=== PATIENT | female | born 1990 | race Caucasian/White ===

== ENCOUNTER → 2018-05-16 | Outpatient (CLI) | payer OTHER ==
--- NOTE | 2018-05-16 16:56 | RADIOLOGY REPORT (SQ) ---
EXAM DESCRIPTION: HYSTEROSALPINGOGRAM; HYSTERO CATH/INJECTION COMPLETED DATE/TIME: 05/16/2018 3:20 pm; 05/16/2018 3:21 pm REASON FOR STUDY: INFERTILITY COMPARISON: None. PROCEDURE: PRE-PROCEDURE: Procedure was explained to the patient. She was told to expect cramping du ring the procedure, and possible spotting post procedure. PROCEDURE: Under direct visual inspection, the cervix was cannulated with the hysterosalpingogram cat heter and contrast injected. TECHNIQUE: Temporal fluoroscopic images acquired during the procedure stored to PACS. FLUOROSCOPY TIME: Less than 5 seconds 7 digital radiographic images saved to PACS. LIMITATIONS: None. FINDINGS: UTERUS: No identified anomalies. No synechia. RIGHT ADNEXA: Normal size fallopian tube. Free spill of contrast into the peritoneal cavity. LEFT ADNEXA: Normal size fallopian tube. Free spill of contrast into the peritoneal cavity. POST PROCEDURE: The patient tolerated the procedure with no adverse effects. IMPRESSION: NORMAL HYSTEROSALPINGOGRAM. COMMENT: Quality ID 145: Final reports for procedures using fluoroscopy that document radiation exp osure indices, or exposure time and number of fluorographic images (if radiation exposure indices are not available) TECHNICAL DOCUMENTATION: JOB ID: [id number] [employer]- All Rights Reserved Reading location - IP/workstation name: [email or web address]
--- NOTE | 2018-05-16 16:56 | RADIOLOGY REPORT (SQ) ---
EXAM DESCRIPTION: HYSTEROSALPINGOGRAM; HYSTERO CATH/INJECTION COMPLETED DATE/TIME: 05/16/2018 3:20 pm; 05/16/2018 3:21 pm REASON FOR STUDY: INFERTILITY COMPARISON: None. PROCEDURE: PRE-PROCEDURE: Procedure was explained to the patient. She was told to expect cramping du ring the procedure, and possible spotting post procedure. PROCEDURE: Under direct visual inspection, the cervix was cannulated with the hysterosalpingogram cat heter and contrast injected. TECHNIQUE: Temporal fluoroscopic images acquired during the procedure stored to PACS. FLUOROSCOPY TIME: Less than 5 seconds 7 digital radiographic images saved to PACS. LIMITATIONS: None. FINDINGS: UTERUS: No identified anomalies. No synechia. RIGHT ADNEXA: Normal size fallopian tube. Free spill of contrast into the peritoneal cavity. LEFT ADNEXA: Normal size fallopian tube. Free spill of contrast into the peritoneal cavity. POST PROCEDURE: The patient tolerated the procedure with no adverse effects. IMPRESSION: NORMAL HYSTEROSALPINGOGRAM. COMMENT: Quality ID 145: Final reports for procedures using fluoroscopy that document radiation exp osure indices, or exposure time and number of fluorographic images (if radiation exposure indices are not available) TECHNICAL DOCUMENTATION: JOB ID: [id number] [employer]- All Rights Reserved Reading location - IP/workstation name: [email or web address]
== END ==
LOC: RAD 14:31
PROVIDERS: ATTEND Specialist
DX: N97.9 Female infertility, unspecified (principal)
CPT/HCPCS: 58340; 74740

== ENCOUNTER → 2019-02-20 | Outpatient (CLI) | payer OTHER ==
[2019-02-20 18:23] LABS: ALBUMIN 3.5 g/dL (3.5-5.0); ALKALINE PHOSPHATASE 139 U/L (38-126); ASPARTATE AMINO TRANSFERASE 21 U/L (14-36); BILIRUBIN,DIRECT 0.2 mg/dL (0.0-0.4); BILIRUBIN,TOTAL 0.4 mg/dL (0.2-1.3); TOTAL PROTEIN 6.1 g/dL (6.3-8.2)
== END ==
LOC: OD 16:24
PROVIDERS: ATTEND Advanced Practice Midwife
DX: O26.86 Pruritic urticarial papules and plaques of pregnancy (PUPPP) (principal); L29.9 Pruritus, unspecified; Z3A.00 Weeks of gestation of pregnancy not specified
CPT/HCPCS: 36415; 80076; 82239

== ENCOUNTER 2019-03-20 22:46 | Inpatient (IN) | payer OTHER ==
[2019-03-20] MEDS ORDERED: OXYTOCIN 10 UNIT/ML VIAL ONE (22:58)
[2019-03-20] MEDS ORDERED: MISOPROSTOL 0.2 MG TABLET ONE (22:58)
[2019-03-20] MEDS ORDERED: PENICILLIN G-K 5 MILLION UNIT VIAL ONE (22:59)
[2019-03-20] MEDS ORDERED: LIDOCAINE 1% INJ-PF (10 MG/ML) 30 ML SDV ONE (22:59)
[2019-03-20] MEDS ORDERED: OXYTOCIN/NORMAL SALINE 20 UNIT/1,000 ML RTUINJ ONE (22:59)
[2019-03-20] MEDS ORDERED: RINGERS SOLUTION,LACTATED 1,000 ML IV PRN (23:17)
[2019-03-20] MEDS ORDERED: BUPIVACAINE HCL 0.25 % INJ/PF (2.5 MG/1 ML) 30 ML VIAL ONE (23:30)
[2019-03-20] MEDS ORDERED: FENTANYL/BUPIVACAINE/NS/PF 300 MCG/150 ML RTUINJ EPI ONE (23:30)
[2019-03-20] MEDS ORDERED: EPHEDRINE SULFATE INJ 50 MG/1 ML AMPULE ONE (23:30)
[2019-03-20 23:56] LABS: ABSOLUTE EOSINOPHILS # (AUTO) 0.1 10^3/uL (0.0-0.6); ABSOLUTE MONOCYTES (AUTO) 0.7 10^3/uL (0.1-1.4); ABSOLUTE NEUT (AUTO) 8.3 10^3/uL (1.7-8.2); BASOPHILS % (AUTO) 0.3 % (0-2); EOSINOPHILS % (AUTO) 1.2 % (0-6); HEMATOCRIT 35.4 % (36.0-47.0); HEMOGLOBIN 12.1 g/dL (12.0-15.5); LYMPHOCYTES % (AUTO) 18.2 % (13-45); MEAN CORPUSCULAR HEMOGLOBIN 30.8 pg (27.0-33.4); MEAN CORPUSCULAR HGB CONC 34.2 g/dL (32.0-36.0); MEAN CORPUSCULAR VOLUME 90 fl (80-97); MONOCYTES % (AUTO) 6.6 % (3-13); PLATELET COUNT 205 10^3/uL (150-450); RED BLOOD COUNT 3.93 10^6/uL (3.72-5.28); RED CELL DISTRIBUTION WIDTH 13.6 % (11.5-14.0); SEGMENTED NEUTROPHILS % (AUTO) 73.7 % (42-78); TOTAL CELLS COUNTED % (AUTO) 100 %; WHITE BLOOD COUNT 11.2 10^3/uL (4.0-10.5)
[2019-03-20] MEDS ORDERED: PENICILLIN G POTASSIUM 5,000,000 UNIT in DEXTROSE 5%-WATER 100 ML IV ONE (23:59)
[2019-03-21] LABS: APPEARANCE,URINE TURBID; BILIRUBIN,URINE NEGATIVE (NEGATIVE); COLOR,URINE AMBER; GLUCOSE, URINE NEGATIVE (NEGATIVE); KETONES,URINE NEGATIVE (NEGATIVE); LEUKOCYTE ESTERASE,URINE NEGATIVE (NEGATIVE); NITRITE,URINE NEGATIVE (NEGATIVE); PROTEIN,URINE 100 mg/dL (NEGATIVE); URINE SPECIFIC GRAVITY 1.004; UROBILINOGEN,URINE NEGATIVE mg/dL (<2.0)
[2019-03-21] MEDS ORDERED: PENICILLIN G-K 5 MILLION UNIT VIAL ONE ×3 (03:01→07:27)
[2019-03-21] MEDS: PENICILLIN G POTASSIUM 2,500,000 UNIT in DEXTROSE 5%-WATER 50 ML IV SCH ×2 (03:22→10:24)
--- NOTE | 2019-03-21 05:09 | Admission Physical ---
Datetime Report Generated by CPN: 03/21/2019 05:09 CURRENT ADMISSION Chief Complaint: Uterine Contractions; Suspected Ruptured Membranes Indication for Induction: Not Applicable Admit Impression : Term, Intrauterine ; No Active Labor Admit Plan: Admit to Unit; Initiate Labor Protocol; Initiate Labor Augmentation Protocol ALLERGIES Medication Allergies: No Latex: No Latex Allergies OBSTETRICAL HISTORY EDC: 03/15/2019 00:00 : 1 Para: 0 Term: 0 : 0 SAB: 0 IAB: 0 Ectopic: 0 Livin Cesareans: 0 VBACs: 0 Multiple Births: 0 Gestational Diabetes: No Rh Sensitization: No Incompetent Cervix: No TOSHA: No Infertility: No ART Treatment: No Uterine Anomaly: No IUGR: No Hx Previous C/S: No Macrosomia: No Hx Loss/Stillborn: No PIH: No Hx : No Placenta Previa/Abruption: No Depression/PP Depression: No PTL/PROM: No Post Hemorrhage: No Obstetrical History Comments: G1- current SEE RECORDS Alcohol: No Marijuana : No Cocaine: No Other Illicit Drugs: No Cigarettes: Never Smoker. [id number] MEDICAL HISTORY Diabetes: No Blood Transfusion: No Pulmonary Disease (Asthma, TB): Yes Breast Disease: No Hypertension: No Vendor Management Associate Surgery: No Heart Disease: No Hosp/Surgery: No Autoimmune Disorder: No Anesthetic Complications: No Kidney Disease: No Abnormal Pap Smear: No Neuro/Epilepsy: No Psychiatric Disorders: No Other Medical Diseases: Yes Hepatitis/Liver Disease: No Significant Family History: No Varicosities/Phlebitis: No Trauma/Violence : No Thyroid Dysfunction: No Medical History Comments: SVT as child, mild asthma, tonsillectomy, tubes in ears, adenoidectomy INFECTIOUS HISTORY Gonorrhea: No Genital Herpes: No Chlamydia: No Tuberculosis: No Syphilis: No Hepatitis: No HIV/AIDS Exposure: No Rash or Viral Illness: No HPV: No PHYSICAL EXAM General: Normal HEENT: Normal Neurologic: Normal Thyroid: Normal Heart: Normal Lungs: Normal Breast: Normal Back: Normal Abdomen: Normal Genitourinary Exam: Normal Extremities: Normal DTRs: Normal Pelvic Type: Adequate Vital Signs: Reviewed VAGINAL EXAM Dilatation: 4 Effacement: 90 Station: -3 MEMBRANES Pooling: Negative Membranes: Ruptured Amniotic Fluid Color: Clear FETUS A EGA: 40.6 Monitoring: External US FHR- Baseline: 130 Variability: Moderate 6-25bpm Accelerations: 15X15 Decelerations: None FHR Category: Category I Estimated Weight (gm): 3400 Presentation: Vertex PLANS FOR LABOR AND DELIVERY Labor and Delivery: None Pain Management: Epidural Feeding Preference: Breast Benefit of Breast Feed Discussed: Yes Circumcision: N/A INFORMED CONSENT Signature: with User ID: [email or web address]
[2019-03-21] MEDS ORDERED: DIPHENHYDRAMINE HCL 25 MG CAPSULE PO PRN (09:59)
[2019-03-21] MEDS ORDERED: OXYTOCIN/NORMAL SALINE 20 UNIT/1,000 ML RTUINJ IV PRN (09:59)
[2019-03-21] MEDS ORDERED: DIBUCAINE 1% OINTMENT 56 GM TP PRN (09:59)
[2019-03-21] MEDS ORDERED: PROMETHAZINE HCL 25 MG SUPP.RECT PR PRN (09:59)
[2019-03-21] MEDS ORDERED: PROMETHAZINE HCL INJ 25 MG/1 ML VIAL IV PRN (09:59)
[2019-03-21] MEDS ORDERED: ACETAMINOPHEN WITH CODEINE #3 TABLET PO PRN ×2 (09:59)
[2019-03-21] MEDS ORDERED: BENZOCAINE/MENTHOL AEROSOL SPRAY 56 ML TOP PRN (09:59)
[2019-03-21] MEDS ORDERED: PROMETHAZINE HCL 25 MG TABLET PO PRN (09:59)
[2019-03-21] MEDS ORDERED: DIPH/PERTUSS(ACELL)/TETANUS VAC/PF 0.5 ML SYR (>=10YO) IM PRN (09:59)
[2019-03-21] MEDS ORDERED: NA PHOS,M-B/NA PHOS,DI-BA (ADULT) 133 ML ENEMA PR PRN (09:59)
[2019-03-21] MEDS ORDERED: GLYCERIN/WITCH HAZEL LEAF 1 EACH MED..WIPE TP PRN (09:59)
[2019-03-21] MEDS ORDERED: ACETAMINOPHEN 325 MG TABLET PO PRN (09:59)
[2019-03-21] MEDS ORDERED: MEASLES,MUMPS&RUBELLA VACC/PF 0.5 ML VIAL SUBCUT PRN (09:59)
[2019-03-21] MEDS ORDERED: PSEUDOEPHEDRINE HCL 30 MG TABLET PO PRN (09:59)
[2019-03-21] MEDS ORDERED: MAGNESIUM HYDROXIDE SUSP 30 ML UDCUP PO PRN (09:59)
[2019-03-21] MEDS ORDERED: DOCUSATE SODIUM 100 MG CAPSULE ONE (10:27)
[2019-03-21] MEDS ORDERED: IBUPROFEN 800 MG TABLET ONE (10:27)
[2019-03-21] MEDS ORDERED: FAMOTIDINE 20 MG TABLET ONE (10:27)
[2019-03-21] MEDS ORDERED: SENNOSIDES/DOCUSATE 8.6-50 MG 1 EACH TABLET ONE (10:27)
[2019-03-21] MEDS ORDERED: PRENATAL VITAMIN W DHA CAPSULE PO ONE (10:27)
[2019-03-21] MEDS ORDERED: FERROUS SULFATE 325 MG TABLET PO ONE (10:27)
[2019-03-21] MEDS: FERROUS SULFATE 325 MG TABLET PO SCH ×2 (10:31→17:21)
[2019-03-21] MEDS: IBUPROFEN 800 MG TABLET PO SCH ×3 (10:31→21:36)
[2019-03-21] MEDS: DOCUSATE SODIUM 100 MG CAPSULE PO SCH ×2 (10:31→17:21)
[2019-03-21] MEDS: PRENATAL VITAMIN W DHA CAPSULE PO SCH (10:32)
[2019-03-21] MEDS: FAMOTIDINE 20 MG TABLET PO SCH ×2 (10:32→21:36)
[2019-03-21] MEDS: SENNOSIDES/DOCUSATE 8.6-50 MG 1 EACH TABLET PO SCH (10:33)
--- NOTE | 2019-03-21 10:42 | Delivery Summary ---
Del Sum A-C Datetime Report Generated by CPN: 03/21/2019 10:42 DELIVERY PERSONNEL DELIVERY PERSONNEL: [id number] Delivery Doctor:: Luz Greco CNM Labor and Delivery Nurse:: Kerry Bob RN Labor and Delivery Nurse:: Sasha Phillips RN Nursery Nurse:: Antonette Knight RN Water Project Engineer/INSPECTOR AIDE: Bonita Wynne CST Additional Personnel: : Wendie Adames RN MATERNAL INFORMATION Delivery Anesthesia: Epidural Medications After Delivery: Pitocin Bolus-Please Comment; Pitocin Drip 20 Units/1000ml NSS Meds After Delivery Comment: Pitocin 20 units in 1 L NS bolusing per order Estimated Blood Loss (ml): 100 Delivery QBL: 105 Maternal Complications: None Provider Comments: Care assumed of this patient while she had been pushing and . Pt. continued pushing and went on to deliver a viable baby girl. Baby placed on maternal abdomen and cord allowed to stop pulsating. At that point imminent delivery taking place in another room and back up provider not available. Stepped out of the room and then returned to cord clamped and cord blood collected by RN. Placenta delivered spontaneously intact (3vc noted), vaginal and perineal inspection revealed lacerations as stated and repaired. Fundus firm, minimal bleeding, mother and baby skin to skin and bonding at this time. LABOR SUMMARY EDC: 03/15/2019 00:00 No. Babies in Womb: 1 Attempted: No Labor Anesthesia: Epidural LABOR INFORMATION Reason for Induction: Not Applicable Onset of Labor: 03/20/2019 23:30 Complete Dilatation: 03/21/2019 06:18 Oxytocin: Augmentation Group B Beta Strep: positive Antibiotics # of Doses: 3 Antibiotics Time of Last Dose: 731 Name of Antibiotic Given: PCN Steroids Given: None Reason Steroids Not Administered: Not Applicable MEMBRANES Membranes Rupture Method: Spontaneous Rupture of Membranes: 03/20/2019 22:00 Length of Rupture (hr): 10.62 Amniotic Fluid Color: Clear Amniotic Fluid Amount: Moderate Amniotic Fluid Odor: Normal STAGES OF LABOR Stage 1 hr: 6 Stage 1 min: 48 Stage 2 hr: 2 Stage 2 min: 19 Stage 3 hr: 0 Stage 3 min: 6 Total Time in Labor hr: 9 Total Time in Labor min: 13 VAGINAL DELIVERY Episiotomy: None Laceration #1: Vaginal Laceration Extension #1: First Degree Other Laceration: right labial Laceration Repair: Yes Laceration Repair Note: vaginal laceration repaired in the usual fashion with 2-0 chromic-hemostatic then labial laceration repaired with 3-0 CT with vicryl. Both hemostatic Sponge Count Correct: Yes Sharps Count Correct: Yes CSECTION DELIVERY Primary Indication: N/A Secondary Indication: N/A CSection Incidence: N/A Labor: N/A Elective: N/A CSection Incision: N/A BABY A INFORMATION Delivery Date/Time: 03/21/2019 08:37 Method of Delivery: Vaginal Born in Route : No : N/A Forceps: N/A Vacuum Extraction: N/A Shoulder Dystocia : No PRESENTATION/POSITION BABY A Presentation: Cephalic Cephalic Presentation: Vertex Breech Presentation: N/A PLACENTA INFORMATION BABY A Placenta Delivery Time : 03/21/2019 08:43 Placenta Method of Delivery: Spontaneous Placenta Status: Delivered SCORES BABY A Heart Rate 1 min: >100 bpm Resp Effort 1 min: Good Cry Reflex Irritability 1 min: Cough or Sneeze or Pulls Away Muscle Tone 1 min: Some Flexion of Extremities Color 1 min: Blue/Pale Resuscitation Effort 1 min: Tactile Stimulation SCORE 1 MIN: 7 Heart Rate 5 min: >100 bpm Resp Effort 5 min: Good Cry Reflex Irritability 5 min: Cough or Sneeze or Pulls Away Muscle Tone 5 min: Active Motion Color 5 min: Body [place], Extremities Blue Resuscitation Effort 5 min: Tactile Stimulation SCORE 5 MIN: 9 INFANT INFORMATION BABY A Gestational Age at Delivery: 40.6 Gestational Status: Full Term- 39- 40.6 Weeks Infant Outcome : Liveborn Condition : Stable Sex: Female IDENTIFICATION BABY A Verification Date/Time: 03/21/2019 09:03 ID Band Number: [id number] Mother's Name Verified: Yes RN Verifying Infant: C. [place], RN K. Micken, RN WEIGHT/LENGTH BABY A Infant Birthweight (gm): 4120 Weight (lb): 9 Weight (oz): 1 Infant Length (in): 21.25 Length (cm): 53.98 CORD INFORMATION BABY A No. Cord Vessels: 3 Nuchal Cord : N/A Cord Blood Taken: Yes-For Storage (Mom's Blood type +) Suction: Mouth; Nose ASSESSMENT BABY A Complications: None Physical Findings at Delivery: Caput Succedaneum; Molding of the Head Respirations: Appears Normal Skin to Skin: Yes Skin to Skin Time (min): 60 Child Welfare Caseworker/ALS Called : No Care By: Jaswinder Knight RN Transferred To: Remains with Mother BABY B INFORMATION : N/A SIGNATURES Assignment: Stephanie Cross MD Signature: with User ID: Christian : with User ID: Christian
[2019-03-22] MEDS: IBUPROFEN 800 MG TABLET PO SCH ×3 (06:07→21:11)
[2019-03-22 07:08] LABS: HEMATOCRIT 28.9 % (36.0-47.0); MEAN CORPUSCULAR HEMOGLOBIN 31.3 pg (27.0-33.4); MEAN CORPUSCULAR HGB CONC 34.4 g/dL (32.0-36.0); MEAN CORPUSCULAR VOLUME 91 fl (80-97); PLATELET COUNT 168 10^3/uL (150-450); RED BLOOD COUNT 3.17 10^6/uL (3.72-5.28); RED CELL DISTRIBUTION WIDTH 13.6 % (11.5-14.0); WHITE BLOOD COUNT 13.8 10^3/uL (4.0-10.5)
[2019-03-22 07:11] LABS: HEMOGLOBIN 9.9 g/dL (12.0-15.5)
--- NOTE | 2019-03-22 09:57 | PDOC PROGRESS REPORT ---
Subjective-OB Progress Note for:: 03/22/19 Physical Exam (OB) Vital Signs: Temp Pulse Resp BP Pulse Ox 98.2 F 76 18 120/73 100 03/22/19 07:21 03/22/19 07:21 03/22/19 07:21 03/22/19 07:21 03/22/19 07:21 Intake & Output 03/21/19 03/22/19 03/23/19 06:59 06:59 06:59 Intake Total 1000 Balance 1000 Weight 87.09 kg - PIH/Pre-Eclampsia DTR's: 1 + Clonus: Negative Headache: Absent Epigastric Pain: No Visual Changes: No - Lochia Lochia Amount: Scant < 10 ml Lochia Color: Rubra/Red - Abdomen Description: Soft, Round Hernia Present: No Bowel Sounds: Normoactive Flatus Presence: Present Stool: No Fundal Description: Firm, Midline Fundal Height: u/u - u/2 Objective-Diagnostic Laboratory: 03/22/19 06:05 03/22/19 06:05 WBC 13.8 H RBC 3.17 L Hgb 9.9 L D Hct 28.9 L MCV 91 MCH 31.3 MCHC 34.4 RDW 13.6 Plt Count 168
[2019-03-22] MEDS: DOCUSATE SODIUM 100 MG CAPSULE PO SCH ×2 (10:05→18:02)
[2019-03-22] MEDS: FERROUS SULFATE 325 MG TABLET PO SCH ×2 (10:05→18:01)
[2019-03-22] MEDS: PRENATAL VITAMIN W DHA CAPSULE PO SCH (10:05)
[2019-03-22] MEDS: FAMOTIDINE 20 MG TABLET PO SCH (10:05)
[2019-03-22] MEDS: SENNOSIDES/DOCUSATE 8.6-50 MG 1 EACH TABLET PO SCH (10:05)
[2019-03-23] MEDS: FAMOTIDINE 20 MG TABLET PO SCH ×2 (00:25→09:32)
[2019-03-23] MEDS: IBUPROFEN 800 MG TABLET PO SCH (05:48)
--- NOTE | 2019-03-23 09:16 | PDOC PROGRESS REPORT ---
Subjective-OB Progress Note for:: 03/23/19 Subjective: Doing well, ready to go home, no c/o Physical Exam (OB) Vital Signs: Temp Pulse Resp BP Pulse Ox 97.6 F 67 14 115/67 97 03/23/19 07:20 03/23/19 07:20 03/23/19 07:20 03/23/19 07:20 03/23/19 07:20 Intake & Output 03/22/19 03/23/19 03/24/19 06:59 06:59 06:59 Intake Total 1000 600 Balance 1000 600 Weight 87.09 kg - PIH/Pre-Eclampsia DTR's: 1 + Clonus: Negative Headache: Absent Epigastric Pain: No Visual Changes: No - Lochia Lochia Amount: Scant < 10 ml Lochia Color: Rubra/Red - Abdomen Description: Soft, Flat Hernia Present: No Fundal Description: Firm, Midline Fundal Height: u/u - u/2 Objective-Diagnostic Laboratory: 03/22/19 06:05 Assessment and Plan(PN) - Assessment and Plan (1) Positive GBS test Is this a current diagnosis for this admission?: Yes (2) Obstetric labial laceration, delivered, current hospitalization Is this a current diagnosis for this admission?: Yes (3) Delivery normal Is this a current diagnosis for this admission?: Yes - Time Spent with Patient Time with patient: Less than 15 minutes Medications reviewed and adjusted accordingly: Yes - Disposition Anticipated Discharge: Home Within: within 24 hours
[2019-03-23] MEDS: FERROUS SULFATE 325 MG TABLET PO SCH (09:32)
[2019-03-23] MEDS: DOCUSATE SODIUM 100 MG CAPSULE PO SCH (09:32)
[2019-03-23] MEDS: SENNOSIDES/DOCUSATE 8.6-50 MG 1 EACH TABLET PO SCH (09:32)
[2019-03-23] MEDS: PRENATAL VITAMIN W DHA CAPSULE PO SCH (09:32)
--- NOTE | 2019-03-23 09:32 | PDOC DISCHARGE SUMMARY ---
Impression - Admit/DC Date/PCP Admission Date/Primary Care Provider: 03/20/19 23:00 LYLA GLEASON CNM Discharge Date: 03/23/19 - Discharge Diagnosis (1) Positive GBS test Is this a current diagnosis for this admission?: Yes (2) Obstetric labial laceration, delivered, current hospitalization Is this a current diagnosis for this admission?: Yes (3) Delivery normal Is this a current diagnosis for this admission?: Yes - Additional Information Resuscitation Status: Full Code Discharge Diet: As Tolerated, Regular Discharge Activity: Activity As Tolerated, No Lifting Over 10 Pounds, Pelvic Rest Referrals: LYLA GLEASON CNM [Primary Care Provider] - (4 weeks) Prescriptions: Ferrous Sulfate [Feosol 325 mg Tablet] 325 mg PO BID #60 tablet Ibuprofen [Motrin 800 mg Tablet] 800 mg PO Q8 #30 tablet Home Medications: Vits96/Iron Fum/Folic [ Tablet] 1 each PO DAILY 03/21/19 Ferrous Sulfate [Feosol 325 mg Tablet] 325 mg PO BID #60 tablet 03/23/19 Ibuprofen [Motrin 800 mg Tablet] 800 mg PO Q8 #30 tablet 03/23/19 Additional Information: RTC 4 weeks HPI Gestational Age: 40.6 Reason(s) for Admission: Onset of Labor, PROM, Group B Strep Positive Procedures: NST, Ultrasound Intrapartum Procedure(s): Spontaneous Vaginal Delivery Complication(s): Laceration-Vaginal Laceration-Degree: 1st Hospital Course Hospital Course: Admitted at 40.6 weeks with SROM and irregular uc's, treated for GBS,, delivered female, wt 9-1, apgars 7/9 Results Laboratory Results: WBC 13.8 10^3/uL (4.0-10.5) H 03/22/19 06:05 RBC 3.17 10^6/uL (3.72-5.28) L 03/22/19 06:05 Hgb 9.9 g/dL (12.0-15.5) L D 03/22/19 06:05 Hct 28.9 % (36.0-47.0) L 03/22/19 06:05 MCV 91 fl (80-97) 03/22/19 06:05 MCH 31.3 pg (27.0-33.4) 03/22/19 06:05 MCHC 34.4 g/dL (32.0-36.0) 03/22/19 06:05 RDW 13.6 % (11.5-14.0) 03/22/19 06:05 Plt Count 168 10^3/uL (150-450) 03/22/19 06:05 Lymph % (Auto) 18.2 % (13-45) 03/20/19 22:39 [place] % (Auto) 6.6 % (3-13) 03/20/19 22:39 Eos % (Auto) 1.2 % (0-6) 03/20/19 22:39 Baso % (Auto) 0.3 % (0-2) 03/20/19 22:39 Absolute Neuts (auto) 8.3 10^3/uL (1.7-8.2) H 03/20/19 22:39 Absolute Lymphs (auto) 2.0 10^3/uL (0.5-4.7) 03/20/19 22:39 Absolute Monos (auto) 0.7 10^3/uL (0.1-1.4) 03/20/19 22:39 Absolute Eos (auto) 0.1 10^3/uL (0.0-0.6) 03/20/19 22:39 Absolute Basos (auto) 0.0 10^3/uL (0.0-0.2) 03/20/19 22:39 Seg Neutrophils % 73.7 % (42-78) 03/20/19 22:39 Urine Color ISAÍAS 03/20/19 22:39 Urine Appearance TURBID 03/20/19 22:39 Urine pH 8.0 (5.0-9.0) 03/20/19 22:39 Ur Specific [place] 1.004 03/20/19 22:39 Urine Protein 100 mg/dL (NEGATIVE) H 03/20/19 22:39 Urine Glucose (UA) NEGATIVE mg/dL (NEGATIVE) 03/20/19 22:39 Urine Ketones NEGATIVE mg/dL (NEGATIVE) 03/20/19 22:39 Urine Blood MODERATE (NEGATIVE) H 03/20/19 22:39 Urine Nitrite NEGATIVE (NEGATIVE) 03/20/19 22:39 Urine Bilirubin NEGATIVE (NEGATIVE) 03/20/19 22:39 Urine Urobilinogen NEGATIVE mg/dL (<2.0) 03/20/19 22:39 Ur Leukocyte Esterase NEGATIVE (NEGATIVE) 03/20/19 22:39 Urine Ascorbic Acid NEGATIVE (NEGATIVE) 03/20/19 22:39 RPR NONREACTIVE (NONREACTIVE) 03/20/19 22:39 Blood Type A POSITIVE 03/20/19 22:39 Antibody Screen NEGATIVE 03/20/19 22:39 Plan Plan of Treatment: Discharge home, pelvic rest, baby home with family Time Spent: Less than 30 Minutes
[2019-03-23 11:27] VITALS: BP 122/68
== END 2019-03-23 12:20 | disposition home or self-care (01) | DRG 807 ==
LOC: LC 22:46 → LR 23:00 → 2N 03-21 11:10
PROVIDERS: ADMIT Obstetrics & Gynecology; ATTEND Obstetrics & Gynecology
PROC: 10E0XZZ Delivery of Products of Conception, External Approach (ICD-10-PCS; principal; 2019-03-20)
PROC: 0HQ9XZZ Repair Perineum Skin, External Approach (ICD-10-PCS; 2019-03-21)
DX: O99.824 Streptococcus B carrier state complicating childbirth (principal); O70.0 First degree perineal laceration during delivery; Z3A.40 40 weeks gestation of pregnancy; Z37.0 Single live birth
CPT/HCPCS: 36415; 81005; 85025; 85027; 86592; 86850; 86900; 86901; J2540; J2590; J3010; J3490; J7060